=== PATIENT | female | born 1985 | race Caucasian/White ===

== ENCOUNTER → 2020-10-25 09:10 | Outpatient (BNVA) | payer BC, SELFPAY | PROVIDERS: Family Provider Family Medicine; Visit Provider Obstetrics & Gynecology | DX: Z11.3 Encounter for screening for infections with a predominantly sexual mode of transmission (principal) | CPT/HCPCS: 86592; 87491; 87529; 87591; 87661; 87806 ==

== ENCOUNTER 2021-12-03 12:24 | Emergency (ER) | payer SELFPAY ==
--- NOTE | 2021-12-03 12:50 | XR_ITS ---
WS: [id number] Portable PA upright chest, 12/03/2021 Clinical Data: fever Comparison: PA and lateral chest, 07/18/2014. Findings: No nodules, masses or effusions are seen. The heart is normal. The pulmonary vascularity is not increased. No pneumonia or pneumothorax is seen. There is a dextroscoliosis of the lower thoraci c spine. XR/XR chest 1V portable [id number] Impression: Negative chest.
[2021-12-03 13:26] VITALS: BP 127/85; PULSE 108; RESP 16; TEMP 36.8; O2SAT 100; BMI 17.6
[2021-12-03 13:41] LABS: Add Urine Microscopic? NO; Charge for UA Resulting for Rev
[2021-12-03 14:26] LABS: Bilirubin Urine Neg (Negative); Blood Urine Neg (Negative); Glucose Urine UA Norm (Normal); Ketones Urine Negative (Negative); Leukocyte Esterase Urine Negative (Negative); Nitrate Urine Negative (Negative); Protein Urine Neg (Negative); Specific Gravity, Urine 1.015 (1.005-1.030); Sulfosalicylic Acid Urine Negative (Negative); Urine Appearance Clear (CLEAR); Urine Color Yellow (Yellow); Urobilinogen Urine Neg (Negative); pH Urine 8 (5-7)
[2021-12-03 16:28] LABS: Basophils % 0.6 %; Eosinophils # 0.2 10^3/uL (0.0-0.8); Hematocrit 44.6 % (37.0-47.0); Hemoglobin 15.1 g/dL (11.5-15.3); Lymphocytes # 1.9 10^3/uL (0.8-4.8); Lymphocytes % 29.1 %; Mean Corpuscular HGB Conc 33.9 g/dL (30.0-36.0); Mean Corpuscular Hemoglobin 32.5 pg (28.0-34.0); Mean Corpuscular Volume 96.1 fl (81-99); Mean Platelet Volume 10.5 fL (7.4-10.4); Monocytes # 0.6 10^3/uL (0.2-0.9); Monocytes % 8.9 %; Neutrophils # 3.86 10^3/uL (1.8-7.7); Neutrophils % 58.2 %; Nucleated Red Blood Cells % 0 %; Platelet Count 181 10^3/cmm (130-400); Red Blood Count 4.64 10^6/uL (4.1-5.3); Red Cell Distribution Width 12.3 % (12.1-15.1); White Blood Count 6.6 10^3/uL (4.0-10.0)
--- NOTE | 2021-12-03 16:39 | ED_ITS ---
HPI - Abdominal Pain General: Chief Complaint: Abdominal Pain Stated Complaint: fever, nausea Time Seen by Provider: 12/03/21 16:33 History of Present Illness: Ms Powers is a 36-year-old lady without significant past medical history presents the emergency department due to generalized symptoms and abdominal discomfort. Symptoms were subacute in onset approximately 7 days ago. She endorses a number of symptoms including low-grade fevers with T-max at home 100.5, generalized malaise, some headaches, congestion, cough, and primarily abdominal discomfort. She has had nausea and one episode of diarrhea. She describes pressure in the abdomen which has continued. There is no correlation with eating or improvement with bowel movements. She has a history of hysterectomy. She denies vaginal discharge. She did have some vaginal bleeding approximately 10 weeks ago after sex however this is not persisted or recurred and she did not have significant abdominal pain associated with this. She denies discomfort with urination. Pain at time is aching in the flanks. Overall the course of symptoms has persisted mildly worsened. Intensity is moderate. No other specific exacerbating relieving factors identified. She does endorse positive sick contacts though her daughter tested negative for Covid. Pertinent past history: none Pain Consistency: constant Severity: moderate Quality: aching and fullness Exacerbating factors: nothing Relieving factors: nothing Associated Symptoms: Reports fever(s), nausea and other Review of Systems General: Reports: 10 or more systems reviewed and unremarkable except in HPI and below Const: Reports: fever(s) GI: Reports: nausea and other PFSH ED PFSH: Medical History (Updated 12/03/21 @ 20:13 by Dimitrios Garnica MD) Anxiety and depression Surgical History (Updated 10/29/20 @ 11:19 by Franco Rivero MD) S/P laparoscopic assisted vaginal hysterectomy (LAVH) (~03/2013) still has ovaries. Performed at [facility] in [place], [place]. S/P tubal ligation (03/28/09) tubal ligation. Performed by Dr. Rivero at [facility] in [place], [place]. Family History Father Hypertension Grandmother Breast cancer Paternal Grandfather Stroke Paternal Social History Smoking and tobacco status: current every day smoker cigarettes Packs smoked per day: 0.5 [ Other cigarette details: Most 1 ppd, started age 13.] Alcohol intake: current Physical Exam Const: COMMON NORMALS: alert GENERAL APPEARANCE: cooperative, well developed and ill appearing (mildly) HENMT: COMMON NORMALS: normocephalic and atraumatic HEAD & SCALP: normocephalic and atraumatic THROAT: posterior oropharynx normal OTHER: dry mucous membranes Eye: COMMON NORMALS: conjunctivae normal CONJUNCTIVA: Yes conjunctivae normal SCLERA: sclerae normal Neck/C-Spine: COMMON NORMALS: supple GENERAL: Yes trachea midline Resp: COMMON NORMALS: normal respiratory effort EFFORT & INSPECTION: Yes able to speak in complete sentences Cardio: COMMON NORMALS: regular rhythm RATE: tachycardic RHYTHM: regular rhythm GI: COMMON NORMALS: Soft to palpation PALPATION: Yes Soft to palpation and No Tenderness to palpation present (GI) PERCUSSION: normal to percussion Extremity: GENERAL: Yes normal exam except as noted and No edema Neuro: COMMON NORMALS: moves all extremities SENSORIUM/ORIENTATION: Yes alert and No Orientation impaired Psych: COMMON NORMALS: mental status grossly normal and Normal thought process present THOUGHT PROCESS: Normal thought process present Course ED course: - Patient was seen and evaluated by me at bedside - Patient placed on cardiac monitors, IV access obtained - Initial evaluation notable for mildly ill appearance, dry mucous membranes -IV fluids and symptom control ordered - Labs notable for no leukocytosis. Metabolic panel without acute abnormality. Negative urinalysis. Covid negative. Yeast present on self swab wet prep - Discussed laboratory results with the patient, at discussion risks and benefits of additional abdominal imaging, based on my evaluation low likelihood of clinically significant finding. Initially patient desired CT however later changed her mind. I feel based on abdominal exam as well as laboratory studies it is reasonable to forego CT imaging at this time. - Upon serial reexamination after treatment the patient was improved. Reassessment of abdominal exam completely benign. - Based on patient history, evaluation, labs, and imaging as interpreted the most likely cause of the patient's condition is unspecified illness with dehydration - The results of ED evaluation were discussed with the patient including prescriptions and/or symptomatic cares (if applicable) including appropriate and responsible use, followup plan, and return precautions. The patient verbalized understanding and felt safe for discharge. - Patient discharged in satisfactory condition. Note: Click bubbles or prepopulated suarez in note writing are used for assistance with data collection and billing and are inherently more limited than narrative and other text portions of this note. Please use narrative for additional clinical history and defer to narrative/free test for any case of contradictory information. If information appears in only free text or click bubble it should be considered present or absent as reported. Please contact note investment underwriter for clarifications of clinical information or contradictory information. MDM is a brief summary, contradictory or erroneous seeming information should be clarified and full note should be reviewed. Vital Signs: Vital signs: Vital Signs Temperature 98.2 F 12/03/21 18:34 Pulse Rate 62 12/03/21 20:28 Respiratory Rate 18 12/03/21 20:28 Blood Pressure 110/69 12/03/21 20:28 Pulse Oximetry 100 12/03/21 20:28 MDM - Abdominal Pain Medical Decision Making 36-year-old lady with 7 days of fevers and abdominal cramping which is mild. Overall associated symptoms appear more consistent with viral illness. Patient only mildly dehydrated on clinical exam and mildly ill-appearing. Patient had improvement with symptomatic treatment. Laboratory studies essentially unremarkable for obvious cause of symptoms. Covid is negative. Wet prep positive for yeast. Discussed risks and benefits of CT imaging of the abdomen, patient elects to forego imaging at this time. Satisfactory for outpatient management with strict return precautions. Medical Records I reviewed the patient's medical records. Lab Data I reviewed the patient's lab results. : 12/03/21 16:17 12/03/21 16:17 Labs/Radiology: Radiology Impressions Chest X-Ray 12/03/21 12:50 Impression: Negative chest. Laboratory Results WBC 6.6 10^3/uL (4.0-10.0) 12/03/21 16:17 RBC 4.64 10^6/uL (4.1-5.3) 12/03/21 16:17 Hgb 15.1 g/dL (11.5-15.3) 12/03/21 16:17 Hct 44.6 % (37.0-47.0) 12/03/21 16:17 MCV 96.1 fl (81-99) 12/03/21 16:17 MCH 32.5 pg (28.0-34.0) 12/03/21 16:17 MCHC 33.9 g/dL (30.0-36.0) 12/03/21 16:17 RDW 12.3 % (12.1-15.1) 12/03/21 16:17 Plt Count 181 10^3/cmm (130-400) 12/03/21 16:17 MPV 10.5 fL (7.4-10.4) H 12/03/21 16:17 Neut % (Auto) 58.2 % 12/03/21 16:17 Lymph % (Auto) 29.1 % 12/03/21 16:17 [place] % (Auto) 8.9 % 12/03/21 16:17 Eos % (Auto) 3.0 % 12/03/21 16:17 Baso % (Auto) 0.6 % 12/03/21 16:17 Neut # (Auto) 3.86 10^3/uL (1.8-7.7) 12/03/21 16:17 Lymph # (Auto) 1.9 10^3/uL (0.8-4.8) 12/03/21 16:17 [place] # (Auto) 0.6 10^3/uL (0.2-0.9) 12/03/21 16:17 Eos # (Auto) 0.2 10^3/uL (0.0-0.8) 12/03/21 16:17 Baso # (Auto) 0.0 10^3/uL (0.0-0.1) 12/03/21 16:17 Nucleated RBC % (auto) 0 % 12/03/21 16:17 Nucleated RBCs # 0.0 /100WBC 12/03/21 16:17 Sodium 138 mmol/L (136-145) 12/03/21 16:17 Potassium 4.0 mmol/L (3.5-5.1) 12/03/21 16:17 Chloride 99 mmol/L (98-107) 12/03/21 16:17 Carbon Dioxide 25 mmol/L (22-29) 12/03/21 16:17 Anion Gap 18.0 (5-19) 12/03/21 16:17 BUN 7 mg/dL (6-20) 12/03/21 16:17 Creatinine 0.6 mg/dL (0.5-0.9) 12/03/21 16:17 GFR Calculation 113.8 mL/min (90-130) 12/03/21 16:17 Glucose 79 mg/dL (65-115) 12/03/21 16:17 Calculated Osmolality 283 mOsm/kg (285-295) L 12/03/21 16:17 Calcium 9.0 mg/dL (8.5-10.5) 12/03/21 16:17 Total Bilirubin 0.5 mg/dL (0.15-1.2) 12/03/21 16:17 AST 17 U/L (0-32) 12/03/21 16:17 ALT 15 U/L (0-33) 12/03/21 16:17 Alkaline Phosphatase 52 IU/L (35-105) 12/03/21 16:17 Total Protein 7.3 g/dL (6.6-8.7) 12/03/21 16:17 Albumin 4.8 g/dL (3.5-5.2) 12/03/21 16:17 Globulin 2.5 g/dL (1.3-4.6) 12/03/21 16:17 HCG, Qual Negative (Negative) 12/03/21 16:17 Urine Color Yellow (Yellow) 12/03/21 13:34 Urine Appearance Clear (CLEAR) 12/03/21 13:34 Urine pH 8 (5-7) H 12/03/21 13:34 Ur Specific [place] 1.015 (1.005-1.030) 12/03/21 13:34 Urine Protein Neg (Negative) 12/03/21 13:34 Urine Glucose (UA) Norm (Normal) 12/03/21 13:34 Urine Ketones Negative (Negative) 12/03/21 13:34 Urine Blood Neg (Negative) 12/03/21 13:34 Urine Nitrate Negative (Negative) 12/03/21 13:34 Urine Bilirubin Neg (Negative) 12/03/21 13:34 Prot Sulfosalicylic Acd Negative (Negative) 12/03/21 13:34 Urine Urobilinogen Neg mg/dL (Negative) 12/03/21 13:34 Ur Leukocyte Esterase Negative (Negative) 12/03/21 13:34 SARS-CoV-2 Ag (Rapid) Negative (Negative) 12/03/21 17:30 Discharge Plan Discharge Patient Disposition: Home Clinical Impression: Abdominal pain, Fever, Nausea & vomiting, Vaginal yeast infection Condition: Stable Prescriptions: New ondansetron 4 mg tablet,disintegrating 4 mg PO Q8H PRN (Reason: nausea and vomiting) 5 Days Qty: 15 0RF Diflucan 150 mg tablet 150 mg PO DAILY Qty: 1 0RF Rx Instructions: Take if continued symptoms 72 hrs after 1st dose Discharge Orders: Discharge ED (Routine); Ordered 12/03/21 Ordered By: Dimitrios Garnica Referrals: Venkata Alvarado, [Primary Care Provider] - Discharge Diet: Advance as tolerated and Clear Liquid Discharge Activity: Resume usual activity Patient Instructions: Yeast Infection (ED), Acute Nausea and Vomiting (ED), Abdominal Pain (ED) Activity Restrictions/Additional Instructions: Thank you for visiting the emergency department. You were seen and evaluated for abdominal pain, fever, generalized symptoms, nausea, vomiting, diarrhea. The exact cause your symptoms is unclear. You were noted to have mild dehy dration. Additionally you do have yeast infection which is treated with medication. Please follow-up with your primary care provider. You may use [id number] medications for symptoms however please do not exceed the daily recommended dosages and please keep in mind that many namebrand medications contain the same active ingredients. Return to the emergency department for worsening symptoms, uncontrolled pain, inability to tolerate oral intake, or anything else that you are concerned about and feel needs emergency department evaluation. Coding Level of Care Code ED [employer] Recruiter for Allen Walls
[2021-12-03 16:53] LABS: HCG, Serum Qual Negative (Negative)
[2021-12-03 17:03] LABS: Alanine Aminotransferase 15 U/L (0-33); Albumin Level 4.8 g/dL (3.5-5.2); Alkaline Phosphatase 52 IU/L (35-105); Aspartate Amino Transferase 17 U/L (0-32); Blood Urea Nitrogen 7 mg/dL (6-20); Carbon Dioxide 25 mmol/L (22-29); Chloride 99 mmol/L (98-107); Globulin 2.5 g/dL (1.3-4.6); Glomerular Filtration Rate 113.8 mL/min (90-130); Glucose 79 mg/dL (65-115); Osmolality Calculated 283 mOsm/kg (285-295); Sodium 138 mmol/L (136-145); Total Bilirubin 0.5 mg/dL (0.15-1.2); Total Protein 7.3 g/dL (6.6-8.7)
[2021-12-03 18:13] LABS: SARS Covid-2 Antigen Negative (Negative)
[2021-12-03 18:34] VITALS: BP 102/73; PULSE 73; RESP 16; TEMP 36.8; O2SAT 98
[2021-12-03] MEDS: sodium chloride 0.9% 1,000 ML 999 ML IV (18:39)
[2021-12-03] MEDS: acetaminophen 500 mg Tablet 1000 MG PO (18:39)
[2021-12-03] MEDS: fluconazole 100 mg Tablet 150 MG PO (20:23)
[2021-12-03 20:28] VITALS: BP 110/69; PULSE 62; RESP 18; O2SAT 100
== END 2021-12-03 20:30 | disposition home or self-care (01) ==
PROVIDERS: Physician Assistant; Emergency Provider Emergency Medicine; PCP Family Medicine
DX: R10.9 Unspecified abdominal pain (principal); R50.9 Fever, unspecified; R11.2 Nausea with vomiting, unspecified; B37.3 Candidiasis of vulva and vagina; F17.210 Nicotine dependence, cigarettes, uncomplicated; Z20.822 Contact with and (suspected) exposure to COVID-19
CPT/HCPCS: 71045; 80053; 81003; 84703; 85025; 87210; 87426; 87491; 87591; 96360; 99283; J7030

== ENCOUNTER 2021-12-08 19:49 | Emergency (ER) | payer SELFPAY ==
[2021-12-08 20:27] VITALS: BP 135/94; PULSE 92; RESP 16; TEMP 36.9; O2SAT 100; BMI 18.5
[2021-12-08 21:57] LABS: Add Urine Microscopic? YES; Bilirubin Urine Neg (Negative); Blood Urine Neg (Negative); Glucose Urine UA Norm (Normal); Ketones Urine Negative (Negative); Leukocyte Esterase Urine 2+ (Negative); Nitrate Urine Negative (Negative); Protein Urine Neg (Negative); Specific Gravity, Urine 1.005 (1.005-1.030); Urine Appearance Clear (CLEAR); Urine Color Yellow (Yellow); Urobilinogen Urine Norm (Negative); pH Urine 7 (5-7)
[2021-12-08 21:59] LABS: RBC Urine 0-4 /hpf (0-2); Squamous Epithelial Cell Urine 15-25 /hpf (0-5)
[2021-12-08 22:00] LABS: Add Urine Culture? No; Bacteria Urine 1+ /hpf
--- NOTE | 2021-12-08 23:11 | CTR_ITS ---
PROCEDURE INFORMATION: Exam: CT Abdomen And Pelvis With Contrast Exam date and time: 12/08/2021 11:11 PM Age: 36 years old Clinical indication: Abdominal pain; Generalized; Prior surgery; Surgery date: 6+ months; Surgery type: Lavh; Patient HX: C/O abd pain w distention x 11 days TECHNIQUE: Imaging protocol: Computed tomography of the abdomen and pelvis with contrast. Radiation optimization: All CT scans at this facility use at least one of these dose optimization techniques: automated exposure control; mA and/or kV adjustment per patient size (includes targeted exams where dose is matched to clinical indication); or iterative reconstruction. Contrast material: OMNI 300; Contrast volume: 75 ml; Contrast route: INTRAVENOUS (IV); COMPARISON: No relevant prior studies available. RADIATION DOSE METRICS: Total DLP (mGy-cm): 694.28 FINDINGS: Lungs: The lung bases are clear. Liver: There is mild periportal edema in the liver. This is a nonspecific finding, that can be seen in hepatitis and other hepatic abnormalities. It can also be a nonsignificant finding, sometimes seen in overhydration. Please correlate clinically. There is a small 10 x 6 mm low attenuation area in the upper right lobe of the liver. The appearance is nonspecific. In this relatively young age group, this may represent a small cavernous hemangioma or cyst. If there is clinical concern for other liver mass, MRI could be more specific. Gallbladder and bile ducts: The gallbladder is partially contracted. No visible gallstones by CT. Ultrasound would be more sensitive for detecting gallstones, if clinically needed. No biliary tree dilation. Pancreas: Unremarkable. Spleen: Unremarkable. Adrenal glands: Unremarkable. Kidneys and ureters: Small right lower pole intrarenal calculus. No hydronephrosis of either kidney. No visible ureteral calculus. No perinephric fluid. The kidneys enhance homogeneously. Stomach and bowel: No significant bowel distention. There are no CT findings to strongly suggest diverticulitis. Appendix: A small appendix is possibly identified, and there are no suspicious findings for appendicitis. No pericecal inflammatory changes are seen. Intraperitoneal space: No free intraperitoneal air, or ascites. Vasculature: No evidence for abdominal aortic aneurysm. Lymph nodes: No retroperitoneal adenopathy. Urinary bladder: Suspect mild to moderate diffuse urinary bladder wall thickening. Evaluation is somewhat limited, as the bladder is not well distended. While nonspecific, this could indicate evidence for cystitis. Please correlate clinically. Reproductive: Apparent prior hysterectomy. No definite ovarian/adnexal cyst or mass by CT. Bones/joints: No significant acute finding. Soft tissues: No significant acute finding. CT/CT abdomen pelvis w con* [id number] IMPRESSION: 1. No free air or bowel distention. No evidence for bowel obstruction. 2. No evidence for appendicitis or diverticulitis. 3. Suspect diffuse urinary bladder wall thickening, possible related to cystitis. 4. Small right intrarenal calculus. No hydronephrosis of either kidney. No visible ureteral calculus. 5. Mild periportal edema in the liver. Small nonspecific liver lesion. See above. 6. Other findings discussed above.
[2021-12-08 23:15] LABS: Basophils # 0.1 10^3/uL (0.0-0.1); Basophils % 0.8 %; Eosinophils # 0.4 10^3/uL (0.0-0.8); Eosinophils % 6.5 %; Hematocrit 40.8 % (37.0-47.0); Hemoglobin 13.4 g/dL (11.5-15.3); Lymphocytes % 33.2 %; Mean Corpuscular HGB Conc 32.8 g/dL (30.0-36.0); Mean Corpuscular Hemoglobin 32.2 pg (28.0-34.0); Mean Corpuscular Volume 98.1 fl (81-99); Mean Platelet Volume 10.9 fL (7.4-10.4); Monocytes # 0.5 10^3/uL (0.2-0.9); Monocytes % 8.3 %; Neutrophils % 50.7 %; Nucleated Red Blood Cells % 0 %; Platelet Count 170 10^3/cmm (130-400); Red Blood Count 4.16 10^6/uL (4.1-5.3); Red Cell Distribution Width 12.2 % (12.1-15.1); White Blood Count 6.1 10^3/uL (4.0-10.0)
[2021-12-08 23:27] LABS: HCG, Serum Qual Negative (Negative)
[2021-12-08 23:32] LABS: Alanine Aminotransferase 18 U/L (0-33); Albumin Level 4.4 g/dL (3.5-5.2); Alkaline Phosphatase 49 IU/L (35-105); Anion Gap 14.4 (5-19); Aspartate Amino Transferase 18 U/L (0-32); Blood Urea Nitrogen 12 mg/dL (6-20); Calcium 8.7 mg/dL (8.5-10.5); Carbon Dioxide 26 mmol/L (22-29); Chloride 104 mmol/L (98-107); Globulin 2.7 g/dL (1.3-4.6); Glomerular Filtration Rate 71.3 mL/min (90-130); Glucose 87 mg/dL (65-115); Lipase 57 U/L (13-60); Osmolality Calculated 291 mOsm/kg (285-295); Potassium 3.4 mmol/L (3.5-5.1); Sodium 141 mmol/L (136-145); Total Bilirubin 0.2 mg/dL (0.15-1.2); Total Protein 7.1 g/dL (6.6-8.7)
--- NOTE | 2021-12-08 23:33 | ED_ITS ---
HPI - Abdominal Pain General: Chief Complaint: Abdominal Pain Stated Complaint: abd pain Time Seen by Provider: 12/08/21 22:51 Source: patient Mode of arrival: ambulatory Limitations: no limitations History of Present Illness: 36-year-old female who states she has been having lower abdominal pain and swelling over the last 10 days. She states that she felt like she is constipated did take pill and had bowel movement states that she still feels like her abdomen swelling and has pain in the lower abdomen she rates a 4-5 out of 10. States she was recently diagnosed with pneumonia has been on doxycycline denies any fever denies any worsening improving factors. Associated Symptoms: Denies chills, dysuria and fever(s) Review of Systems Const: Denies: fever(s), chills, body aches or change in appetite Eyes: Denies: blurry vision or eye discomfort ENMT: Denies: throat pain or dental pain Card: Denies: chest pain Resp: Denies: dyspnea GI: Reports: abdominal pain : Denies: dysuria Musc: Denies: neck pain or back pain Skin/Breast: Denies: rash Neuro: Denies: headache(s) Psych: Denies: depression Armando/Lymph: Denies: easy bruising All/Imm: Denies: urticaria PFSH ED PFSH: Medical History Anxiety and depression Surgical History S/P laparoscopic assisted vaginal hysterectomy (LAVH) (~03/2013) still has ovaries. Performed at [facility] in [place], [place]. S/P tubal ligation (03/28/09) tubal ligation. Performed by Dr. Rivero at [facility] in [place], [place]. Family History Father Hypertension Grandmother Breast cancer Paternal Grandfather Stroke Paternal Social History Smoking and tobacco status: current every day smoker cigarettes Packs smoked per day: 0.5 [ Other cigarette details: Most 1 ppd, started age 13.] Alcohol intake: current Physical Exam Const: COMMON NORMALS: no acute distress, patient oriented x3 and healthy appearing HENMT: COMMON NORMALS: normocephalic and atraumatic HEAD & SCALP: normocephalic and atraumatic Eye: COMMON NORMALS: Equal, round and reactive pupils present and EOMs intact bilaterally PUPIL: Yes Equal, round and reactive pupils present Neck/C-Spine: COMMON NORMALS: full ROM and supple Chest: COMMONS NORMALS: normal inspection of the chest and normal palpation of entire chest wall Resp: COMMON NORMALS: normal respiratory effort, No retractions, No use of accessory muscles and clear to auscultation bilaterally AUSCULTATION: clear to auscultation bilaterally Cardio: COMMON NORMALS: regular rate, regular rhythm and No murmurs present (Cardio) RATE: regular rate RHYTHM: regular rhythm GI: COMMON NORMALS: Normal to inspection, nondistended, normoactive bowel sounds present, Soft to palpation, non-tender and no masses PALPATION: Yes Soft to palpation Extremity: COMMON NORMALS: normal to inspection and full ROM Neuro: COMMON NORMALS: patient oriented x3, moves all extremities and no focal motor deficits Psych: COMMON NORMALS: mental status grossly normal, Normal thought process present and cooperative THOUGHT PROCESS: Normal thought process present Skin: COMMON NORMALS: no rashes or lesions noted and no wounds GENERAL SKIN EXAM: no rashes or lesions noted Course Vital Signs: Vital signs: Vital Signs Temperature 98.5 F 12/08/21 20:27 Pulse Rate 92 12/08/21 20:27 Respiratory Rate 16 12/08/21 20:27 Blood Pressure 135/94 12/08/21 20:27 Pulse Oximetry 100 12/08/21 20:27 MDM - Abdominal Pain Medical Decision Making Patient presents here with abdominal pain and swelling CT scan here shows no acute findings she does have a cystitis is just recently been started on doxycycline is to continue to take that we will follow culture she is to follow- up with PCP and return if worsening she understands agrees to plan. Lab Data : 12/08/21 22:50 12/08/21 22:50 Labs/Radiology: Radiology Impressions Abdomen/Pelvis CT 12/08/21 23:11 IMPRESSION: 1. No free air or bowel distention. No evidence for bowel obstruction. 2. No evidence for appendicitis or diverticulitis. 3. Suspect diffuse urinary bladder wall thickening, possible related to cystitis. 4. Small right intrarenal calculus. No hydronephrosis of either kidney. No visible ureteral calculus. 5. Mild periportal edema in the liver. Small nonspecific liver lesion. See above. 6. Other findings discussed above. Laboratory Results WBC 6.1 10^3/uL (4.0-10.0) 12/08/21 22:50 RBC 4.16 10^6/uL (4.1-5.3) 12/08/21 22:50 Hgb 13.4 g/dL (11.5-15.3) 12/08/21 22:50 Hct 40.8 % (37.0-47.0) 12/08/21 22:50 MCV 98.1 fl (81-99) 12/08/21 22:50 MCH 32.2 pg (28.0-34.0) 12/08/21 22:50 MCHC 32.8 g/dL (30.0-36.0) 12/08/21 22:50 RDW 12.2 % (12.1-15.1) 12/08/21 22:50 Plt Count 170 10^3/cmm (130-400) 12/08/21 22:50 MPV 10.9 fL (7.4-10.4) H 12/08/21 22:50 Neut % (Auto) 50.7 % 12/08/21 22:50 Lymph % (Auto) 33.2 % 12/08/21 22:50 [place] % (Auto) 8.3 % 12/08/21 22:50 Eos % (Auto) 6.5 % 12/08/21 22:50 Baso % (Auto) 0.8 % 12/08/21 22:50 Neut # (Auto) 3.10 10^3/uL (1.8-7.7) 12/08/21 22:50 Lymph # (Auto) 2.0 10^3/uL (0.8-4.8) 12/08/21 22:50 [place] # (Auto) 0.5 10^3/uL (0.2-0.9) 12/08/21 22:50 Eos # (Auto) 0.4 10^3/uL (0.0-0.8) 12/08/21 22:50 Baso # (Auto) 0.1 10^3/uL (0.0-0.1) 12/08/21 22:50 Nucleated RBC % (auto) 0 % 12/08/21 22:50 Nucleated RBCs # 0.0 /100WBC 12/08/21 22:50 Sodium 141 mmol/L (136-145) 12/08/21 22:50 Potassium 3.4 mmol/L (3.5-5.1) L 12/08/21 22:50 Chloride 104 mmol/L (98-107) 12/08/21 22:50 Carbon Dioxide 26 mmol/L (22-29) 12/08/21 22:50 Anion Gap 14.4 (5-19) 12/08/21 22:50 BUN 12 mg/dL (6-20) 12/08/21 22:50 Creatinine 0.9 mg/dL (0.5-0.9) 12/08/21 22:50 GFR Calculation 71.3 mL/min (90-130) L 12/08/21 22:50 Glucose 87 mg/dL (65-115) 12/08/21 22:50 Calculated Osmolality 291 mOsm/kg (285-295) 12/08/21 22:50 Calcium 8.7 mg/dL (8.5-10.5) 12/08/21 22:50 Total Bilirubin 0.2 mg/dL (0.15-1.2) 12/08/21 22:50 AST 18 U/L (0-32) 12/08/21 22:50 ALT 18 U/L (0-33) 12/08/21 22:50 Alkaline Phosphatase 49 IU/L (35-105) 12/08/21 22:50 Total Protein 7.1 g/dL (6.6-8.7) 12/08/21 22:50 Albumin 4.4 g/dL (3.5-5.2) 12/08/21 22:50 Globulin 2.7 g/dL (1.3-4.6) 12/08/21 22:50 Lipase 57 U/L (13-60) 12/08/21 22:50 HCG, Qual Negative (Negative) 12/08/21 22:50 Urine Color Yellow (Yellow) 12/08/21 20:35 Urine Appearance Clear (CLEAR) 12/08/21 20:35 Urine pH 7 (5-7) 12/08/21 20:35 Ur Specific [place] 1.005 (1.005-1.030) 12/08/21 20:35 Urine Protein Neg (Negative) 12/08/21 20:35 Urine Glucose (UA) Norm (Normal) 12/08/21 20:35 Urine Ketones Negative (Negative) 12/08/21 20:35 Urine Blood Neg (Negative) 12/08/21 20:35 Urine Nitrate Negative (Negative) 12/08/21 20:35 Urine Bilirubin Neg (Negative) 12/08/21 20:35 Urine Urobilinogen Norm mg/dL (Negative) 12/08/21 20:35 Ur Leukocyte Esterase 2+ (Negative) H 12/08/21 20:35 Urine RBC 0-4 /hpf (0-2) H 12/08/21 20:35 Urine WBC 5-10 /hpf (0-5) H 12/08/21 20:35 Ur Squamous Epith Cells 15-25 /hpf (0-5) H 12/08/21 20:35 Amorphous Sediment Not Reportable 12/08/21 20:35 Urine Bacteria 1+ /hpf (NONE) H 12/08/21 20:[address] Abd/Pel: Radiologist's impression: IMPRESSION: 1. No free air or bowel distention. No evidence for bowel obstruction. 2. No evidence for appendicitis or diverticulitis. 3. Suspect diffuse urinary bladder wall thickening, possible related to cystitis. 4. Small right intrarenal calculus. No hydronephrosis of either kidney. No visible ureteral calculus. 5. Mild periportal edema in the liver. Small nonspecific liver lesion. See above. 6. Other findings discussed above. Discharge Plan Discharge Patient Disposition: Home Clinical Impression: Abdominal pain, Acute cystitis Condition: Stable Prescriptions: No Action Diflucan 150 mg tablet 150 mg PO DAILY Qty: 1 0RF Rx Instructions: Take if continued symptoms 72 hrs after 1st dose Discharge Orders: Discharge ED (Routine); Ordered 12/09/21 Ordered By: Mert Jackson Referrals: Venkata Alvarado DO [Primary Care Provider] - 1-3 days Discharge Diet: Advance as tolerated Discharge Activity: Resume usual activity Patient Instructions: Urinary Tract Infection in Women (DC), Abdominal Pain (ED) Coding Level of Care Code ED Stained Glass Glazier Helper for Chg Fwd Exam Comprehensive
[2021-12-08] MEDS: iohexol 300 mg/mL 100 mL Btl IV (23:38)
[2021-12-09 01:11] VITALS: RESP 18
== END 2021-12-09 01:12 | disposition home or self-care (01) ==
PROVIDERS: Physician Assistant; Emergency Provider Emergency Medicine; PCP Family Medicine
DX: N30.00 Acute cystitis without hematuria (principal); F17.210 Nicotine dependence, cigarettes, uncomplicated
CPT/HCPCS: 74177; 80053; 81001; 83690; 84703; 85025; 99283; Q9967

== ENCOUNTER → 2022-05-09 12:28 | Outpatient (BNVA) | payer MEDICAID, SELFPAY | PROVIDERS: PCP Family Medicine; Visit Provider Clinical Nurse Specialist Adult Health | DX: R31.9 Hematuria, unspecified (principal); N93.9 Abnormal uterine and vaginal bleeding, unspecified | CPT/HCPCS: 81000; 87086; 87491; 87591 ==

== ENCOUNTER → 2022-06-03 10:20 | Outpatient (BNVA) | payer MEDICAID, SELFPAY | PROVIDERS: PCP Family Medicine; Visit Provider Clinical Nurse Specialist Adult Health | DX: Z11.3 Encounter for screening for infections with a predominantly sexual mode of transmission (principal) | CPT/HCPCS: 81000 ==

== ENCOUNTER → 2022-06-10 12:27 | Outpatient (BNVA) | payer BC, MEDICAID, SELFPAY | PROVIDERS: PCP Family Medicine; Visit Provider Clinical Nurse Specialist Adult Health | DX: Z11.3 Encounter for screening for infections with a predominantly sexual mode of transmission (principal); A74.9 Chlamydial infection, unspecified | CPT/HCPCS: 87491; 87591 ==

== ENCOUNTER → 2022-09-22 13:29 | Outpatient (BNVA) | payer BC, SELFPAY | PROVIDERS: PCP Family Medicine; Visit Provider Clinical Nurse Specialist Adult Health | DX: R39.9 Unspecified symptoms and signs involving the genitourinary system (principal); Z11.3 Encounter for screening for infections with a predominantly sexual mode of transmission; A74.9 Chlamydial infection, unspecified | CPT/HCPCS: 81000; 87491; 87591; 87661 ==